=== PATIENT | female | born 1950 | race Caucasian/White ===

== ENCOUNTER 2016-09-07 19:38 | Emergency (ER) | payer OTHER ==
[~2016-09-07] VITALS: Ht 157.5 cm; Wt 45.4 kg
[2016-09-07 19:47] VITALS: BP 178/65
[2016-09-07] MEDS ORDERED: ACETAMINOPHEN ES 500 MG TABLET ONE (20:23)
[2016-09-07] MEDS ORDERED: ONDANSETRON 4 MG TAB.RAPDIS ONE (20:23)
[2016-09-07] MEDS ORDERED: ONDANSETRON 4 MG TAB.RAPDIS SL ONE (20:30)
[2016-09-07] MEDS ORDERED: ACETAMINOPHEN ES 500 MG TABLET PO ONE (20:30)
== END 2016-09-07 20:40 | disposition home or self-care (01) ==
LOC: ER 19:43
DX: S33.9XXA Sprain of unspecified parts of lumbar spine and pelvis, initial encounter (principal); I10 Essential (primary) hypertension; X58.XXXA Exposure to other specified factors, initial encounter; Y93.9 Activity, unspecified; Y92.9 Unspecified place or not applicable; Y99.9 Unspecified external cause status
CPT/HCPCS: 99283; A4606; Q0162; Z7610